=== PATIENT | male | born 1960 | race Caucasian/White ===

== ENCOUNTER 2024-06-07 23:27 | Emergency (ER) | payer OTHER ==
[2024-06-07 23:34] VITALS: BP 160/90; PULSE 86; RESP 20; TEMP 98.6; BMI 36.3
[2024-06-08 01:21] LABS: BASO % 0.3 % (0-2.0); EOS % 3.3 % (0-4.5); HEMATOCRIT 44.7 % (35.4-49); HEMOGLOBIN 14.9 GM/dL (11.7-16.9); LYMPH % 17.1 % (8-40); MCHC 33.2 g/dl (32.0-35.9); MEAN CELL VOLUME 87.4 fl (80-96); MONO % 8.8 % (3.8-10.2); NEUT % 70.5 % (42.8-82.8); PLATELET COUNT 151 10^3/uL (134-434); RBC 5.12 M/mm3 (4.00-5.60); RDW 16.5 % (11.9-15.9); WHITE BLOOD COUNT 7.1 K/mm3 (4.0-10.0)
[2024-06-08 02:32] LABS: POTASSIUM 4.1 mmol/L (3.5-5.1)
[2024-06-08 02:34] LABS: CALCIUM 8.6 mg/dL (8.5-10.1)
[2024-06-08 02:35] LABS: ALBUMIN 3.6 g/dl (3.4-5.0); BLOOD UREA NITROGEN 19.5 mg/dL (7-18)
[2024-06-08 02:38] LABS: CREATININE 0.7 mg/dL (0.55-1.3)
[2024-06-08 02:39] LABS: BILIRUBIN,TOTAL 0.4 mg/dL (0.2-1); TOT PROT 6.1 g/dl (6.4-8.2)
== END 2024-06-08 03:12 | disposition home or self-care (01) ==
LOC: JER 23:27
DX: M79.672 Pain in left foot (principal); I89.0 Lymphedema, not elsewhere classified
CPT/HCPCS: 36415; 80053; 85025; 99283-25

== ENCOUNTER 2024-06-09 15:08 | Observation (INO) | payer OTHER ==
[2024-06-09 15:49] VITALS: RESP 20; BMI 36.3
[2024-06-09 16:38] LABS: BASO % 0.4 % (0-2.0); EOS % 0.3 % (0-4.5); HEMATOCRIT 48.3 % (35.4-49); HEMOGLOBIN 15.9 GM/dL (11.7-16.9); LYMPH % 10.8 % (8-40); MCH 28.9 pg (25.7-33.7); MCHC 32.9 g/dl (32.0-35.9); MEAN CELL VOLUME 87.9 fl (80-96); MEAN PLT VOLUME 9.7 fl (7.5-11.1); MONO % 9.6 % (3.8-10.2); NEUT % 78.9 % (42.8-82.8); PLATELET COUNT 166 10^3/uL (134-434); RDW 16.2 % (11.9-15.9); WHITE BLOOD COUNT 13.2 K/mm3 (4.0-10.0)
[2024-06-09] MEDS ORDERED: ACETAMINOPHEN INJECTION 100 ML ONE (17:16)
[2024-06-09] MEDS: ACETAMINOPHEN 1000 MG/100 ML BAG IVPB ONE (17:21)
[2024-06-09 18:29] LABS: POTASSIUM 3.9 mmol/L (3.5-5.1)
[2024-06-09 18:34] LABS: ALBUMIN 3.4 g/dl (3.4-5.0); CALCIUM 8.7 mg/dL (8.5-10.1)
[2024-06-09 18:39] LABS: BILIRUBIN,TOTAL 1.1 mg/dL (0.2-1)
[2024-06-09 18:40] LABS: TOT PROT 5.8 g/dl (6.4-8.2)
[2024-06-09] MEDS ORDERED: CEFTRIAXONE 1 GM/50 ML BAG ONE (18:56)
[2024-06-09] MEDS: CEFAZOLIN 1 GM in DEXTROSE 5%-WATER - 50 ML IVPB ONE (18:58)
[2024-06-09 20:05] LABS: CREATININE 0.7 mg/dL (0.55-1.3)
[2024-06-09] MEDS ORDERED: DOCUSATE SODIUM 100 MG CAPSULE (FP) PO PRN (20:22)
[2024-06-09 21:38] VITALS: BP 102/57; PULSE 89; TEMP 97.8
[2024-06-09] MEDS ORDERED: INSULIN ASPART SLIDING SCALE (NOVOLOG) 1 VIAL SQ SCH (22:00)
[2024-06-09] MEDS ORDERED: ACETAMINOPHEN 1000 MG/100 ML BAG IVPB PRN (23:45)
[2024-06-10] MEDS ORDERED: ACETAMINOPHEN 325 MG TABLET (FP) PO PRN (23:45)
== END 2024-06-09 21:45 | disposition left against medical advice (07) ==
LOC: JER 15:08 → JERBED 20:09
PROVIDERS: ADMIT Internal Medicine; ATTEND Internal Medicine
PROC: 3E03329 Introduction of Other Anti-infective into Peripheral Vein, Percutaneous Approach (ICD-10-PCS; principal; 2024-06-09)
PROC: 3E033NZ Introduction of Analgesics, Hypnotics, Sedatives into Peripheral Vein, Percutaneous Approach (ICD-10-PCS; 2024-06-09)
DX: L03.90 Cellulitis, unspecified (principal); E11.40 Type 2 diabetes mellitus with diabetic neuropathy, unspecified; I89.0 Lymphedema, not elsewhere classified; G80.9 Cerebral palsy, unspecified; R26.2 Difficulty in walking, not elsewhere classified; Z88.0 Allergy status to penicillin
CPT/HCPCS: 36415; 80053; 85025; 85651; 86140; 93005; 93010; 93970-TC; 96365; 96375; 99285-25; G0378; J0131